=== PATIENT | male | born 2000 | race African-American/Black ===

== ENCOUNTER 2024-04-04 14:27 | Emergency (ER) | payer OTHER ==
[~2024-04-04] VITALS: Ht 182.9 cm; Wt 108.4 kg
[2024-04-04 16:53] VITALS: BP 116/75; TEMP 97.4; O2SAT 98
== END 2024-04-04 17:03 | disposition home or self-care (01) ==
LOC: M ED 14:27
DX: S62.336A Displaced fracture of neck of fifth metacarpal bone, right hand, initial encounter for closed fracture (principal); Y92.019 Unspecified place in single-family (private) house as the place of occurrence of the external cause; Y93.9 Activity, unspecified; Y99.9 Unspecified external cause status; W01.0XXA Fall on same level from slipping, tripping and stumbling without subsequent striking against object, initial encounter

== ENCOUNTER 2024-04-13 11:11 | Day surgery (SDC) | payer OTHER ==
[~2024-04-13] VITALS: Ht 182.9 cm; Wt 108.5 kg
[~2024-04-13 11:11] MED LIST: ACETAMINOPHEN 1000MG/100ML IV BAG As Ordered ONE; LEXA5TAB13 PO; LIDOCAINE 2% 100MG/5ML SDV (FOR ANES.) As Ordered ONE; ONDANSETRON 4MG 2ML VIAL As Ordered ONE; VITA1CAP25 PO; propofoL 200 MG/20 ML VIAL As Ordered ONE
[2024-04-13] MEDS ORDERED: ROPIvacaine 0.5% 30ML VIAL PN ONE (11:40)
[2024-04-13] MEDS ORDERED: LIDOCAINE 1% SDV 5ML VIAL PN ONE (11:40)
[2024-04-13] MEDS: fentaNYL 100 MCG/2 ML INJECTION IV PRN (12:00)
[2024-04-13] MEDS: MIDAZOLAM INJ 2MG/2ML VIAL IV PRN (12:00)
[2024-04-13] MEDS: LR 1,000 ML IV SCH (12:00)
[2024-04-13] MEDS: dexAMETHasone 10MG/1ML VIAL PRES.FREE PN ONE (12:05)
[2024-04-13] MEDS: ceFAZolin 2 GM/D5W 50 ML IV BAG As Ordered ONE (12:23)
[2024-04-13] MEDS ORDERED: KETOROLAC 60MG 2ML VIAL As Ordered ONE (12:25)
[2024-04-13] MEDS ORDERED: LR 1,000 ML IV SCH (13:25)
[2024-04-13] MEDS ORDERED: HYDROMORPHONE HCL 0.5 MG/ 0.5 ML SYRINGE IV PRN (13:25)
[2024-04-13] MEDS ORDERED: oxyCODONE 5MG TAB PO PRN (13:25)
[2024-04-13] MEDS ORDERED: fentaNYL 100 MCG/2 ML INJECTION IV PRN (13:25)
[2024-04-13] MEDS ORDERED: ONDANSETRON 4MG 2ML VIAL IV PRN (13:25)
[2024-04-13] MEDS ORDERED: HYDR-3713 PO (13:46)
[2024-04-13 15:40] VITALS: BP 123/86; TEMP 97.3; O2SAT 98
== END 2024-04-13 15:49 | disposition home or self-care (01) ==
LOC: M SDC 11:11
PROVIDERS: ATTEND Neuromusculoskeletal Medicine, Sports Medicine
DX: S62.336A Displaced fracture of neck of fifth metacarpal bone, right hand, initial encounter for closed fracture (principal); W10.8XXA Fall (on) (from) other stairs and steps, initial encounter; Y92.9 Unspecified place or not applicable; Y93.9 Activity, unspecified; Y99.9 Unspecified external cause status; Z79.899 Other long term (current) drug therapy
CPT/HCPCS: 26608; 76000; J0131; J0690; J1100; J1885; J2250; J2405; J3010

== ENCOUNTER → 2024-04-22 | Outpatient (CLI) | payer OTHER ==
[~2024-04-22] MED LIST changes: -ACETAMINOPHEN 1000MG/100ML IV BAG As Ordered ONE; +HYDR-3713 PO; -LIDOCAINE 2% 100MG/5ML SDV (FOR ANES.) As Ordered ONE; -ONDANSETRON 4MG 2ML VIAL As Ordered ONE; -propofoL 200 MG/20 ML VIAL As Ordered ONE
== END ==
LOC: M SOG 07:52
PROVIDERS: ATTEND Physician Assistant
DX: S62.336A Displaced fracture of neck of fifth metacarpal bone, right hand, initial encounter for closed fracture (principal); Y93.9 Activity, unspecified; Y92.9 Unspecified place or not applicable

== ENCOUNTER → 2024-05-14 | Outpatient (CLI) | payer OTHER | LOC: M SOG 07:53 | PROVIDERS: ATTEND Physician Assistant | DX: S62.336D Displaced fracture of neck of fifth metacarpal bone, right hand, subsequent encounter for fracture with routine healing (principal) ==

== ENCOUNTER → 2024-06-09 | Outpatient (CLI) | payer OTHER | LOC: M SOG 07:52 | PROVIDERS: ATTEND Physician Assistant | DX: S62.336D Displaced fracture of neck of fifth metacarpal bone, right hand, subsequent encounter for fracture with routine healing (principal); Z98.890 Other specified postprocedural states ==

== ENCOUNTER 2024-10-07 11:40 | Emergency (ER) | payer OTHER ==
[~2024-10-07] VITALS: Ht 182.9 cm; Wt 117.2 kg
[2024-10-07 12:41] LABS: BASO # 0.1 10^3/uL (0.0-0.2); BASO % 0.7 % (0.0-1.0); EOS # 0.1 10^3/uL (0.0-0.5); EOS % 1.4 % (0.0-3.0); LYMPH # 2.3 10^3/uL (1.5-5.0); LYMPH % 33.4 % (24.0-44.0); MONO # 0.6 10^3/uL (0.0-0.8); MONO % 8.8 % (2.0-8.0); NEUTROPHILS # 3.9 10^3/uL (1.5-8.5); NEUTROPHILS % 55.6 % (36.0-66.0); PLATELET COUNT, AUTOMATED 214 10^3/uL (150-450)
[2024-10-07 13:14] LABS: CALCIUM LEVEL 9.9 MG/DL (8.5-10.1); CARBON DIOXIDE LEVEL 24 MMOL/L (20-31); CHLORIDE LEVEL 106 MMOL/L (98-107); CREATININE FOR GFR 0.71 MG/DL (0.70-1.30); GLOMERULAR FILTRATION RATE > 90.0 (>60); POTASSIUM SERUM 4.6 MMOL/L (3.5-5.1); SODIUM LEVEL 142 MMOL/L (136-145)
[2024-10-07 14:30] VITALS: BP 129/84
[2024-10-07 14:32] LABS: MAGNESIUM LEVEL 1.8 MG/DL (1.8-2.4)
[2024-10-07 14:45] VITALS: TEMP 98; O2SAT 99
== END 2024-10-07 15:04 | disposition home or self-care (01) ==
LOC: M ED 11:40
DX: R55 Syncope and collapse (principal); S06.0X0A Concussion without loss of consciousness, initial encounter; F32.A Depression, unspecified; Z79.899 Other long term (current) drug therapy; Z79.1 Long term (current) use of non-steroidal anti-inflammatories (NSAID); Y92.89 Other specified places as the place of occurrence of the external cause; Y93.89 Activity, other specified; Y99.8 Other external cause status